=== PATIENT | male | born 1935 | race Caucasian/White ===

== ENCOUNTER 2018-01-31 11:46 | Emergency (ER) | payer MEDICARE ==
[2018-01-31] MEDS ORDERED: Dexamethasone 10 MG/ML VIAL ONE (12:39)
--- NOTE | 2018-01-31 13:52 | RAD ---
LUMBAR SPINE 2 VIEWS: Date: 01/30/18 HISTORY: Pain. COMPARISON: None. FINDINGS: No acute fracture or malalignment of the lumbar spine. Large flowing lateral osteophytes. Moderate va scular calcifications. Chronic appearing superior end plate deformity at L2. There is advanced degenerative change between t he L4 and L5 spinous processes. IMPRESSION: Degenerative changes. No acute abnormality. POS: JESENIA
== END 2018-01-31 13:23 | disposition home or self-care (01) ==
LOC: SCSER 11:46
DX: M54.41 Lumbago with sciatica, right side (principal); N40.0 Benign prostatic hyperplasia without lower urinary tract symptoms; E78.5 Hyperlipidemia, unspecified; I10 Essential (primary) hypertension; Z79.899 Other long term (current) drug therapy; Z79.82 Long term (current) use of aspirin
CPT/HCPCS: 72100; 96372; J1100

== ENCOUNTER 2018-04-05 16:41 | Emergency (ER) | payer MEDICARE ==
[2018-04-05] MEDS ORDERED: Ibuprofen 200 MG TAB ONE (17:13)
[2018-04-05] MEDS ORDERED: Acetaminophen 500 MG TAB ONE (17:16)
[2018-04-05 18:37] LABS: #Eosinphils 0.1 thou/uL (0.0-0.7); #Lymphocytes 0.4 thou/uL (1.20-3.40); #Monocytes 0.7 thou/uL (0.11-0.59); %Basophils 0.1 % (0.0-1.0); %Eosinophils 1.2 % (0.0-10.0); %Lymphocytes 6.7 % (21.0-51.0); %Monocytes 11.9 % (0.0-10.0); %Neutrophils 80.1 % (42.0-75.0); Hemoglobin 12.3 g/dL (14.0-18.0); Mean Corpuscular HGB CONC 34.1 g/dL (32.0-36.0); Mean Corpuscular Volume 93.9 fl (80.0-94.0); Mean Platelet Volume 7.6 fL (7.4-10.4); Platelet Count 160 thou/uL (130-400); RBC Distribution Width 12.5 % (11.5-14.5); Red Blood Cell (RBC) Count 3.84 mill/uL (4.70-6.10); White Blood Cell (WBC) Count 6.2 thou/uL (4.8-10.8)
[2018-04-05] MEDS ORDERED: cefTRIAXone\\ROCEPHIN 2 GM VIAL ONE (18:38)
[2018-04-05] MEDS ORDERED: Sodium Chloride 0.9% 100 ML ONE (18:38)
--- NOTE | 2018-04-05 18:42 | RAD ---
PA AND LATERAL OF THE CHEST: 04/05/18 INDICATION: Chest pain with fever. FINDINGS: There are patchy opacities suspected within the left lower lobe which are new from comparison dated , suspicious for pneumonia. The right lung is clear. Moderate cardiomegaly is stable. 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 Chronic osseous changes are stable. IMPRESSION: Patchy air space opacity within the left lower lobe suspicious for pneumonia. Radiographic followup t o resolution is recommended. POS: KANE
[2018-04-05 18:56] LABS: ALT (SGPT) 20 U/L (8-55); AST (SGOT) 23 U/L (5-34); Albumin 4.1 g/dL (3.4-4.8); Alkaline Phosphatase 76 U/L (40-150); Anion Gap 12 mmol/L (10-20); BUN (Urea Nitrogen) 39 mg/dL (8.4-25.7); Bilirubin, Total 0.7 mg/dL (0.2-1.2); Calc. Creatinine Clearance 0 mL/min (70-130); Calcium 9.4 mg/dL (7.8-10.44); Carbon Dioxide 24 mmol/L (23-31); Chloride 106 mmol/L (98-107); Estimated GFR-MDRD 32; Globulin 2.6 g/dL (2.4-3.5); Glucose 104 mg/dL (83-110); Potassium 5.2 mmol/L (3.5-5.1); Protein, Total 6.7 g/dL (5.8-8.1); Sodium 137 mmol/L (136-145)
[2018-04-05] MEDS ORDERED: Azithromycin 250 MG TAB ONE (20:18)
== END 2018-04-05 20:30 | disposition home or self-care (01) ==
LOC: ERS 16:41
DX: J18.9 Pneumonia, unspecified organism (principal); E78.5 Hyperlipidemia, unspecified; I10 Essential (primary) hypertension
CPT/HCPCS: 36415; 71046; 80053; 85025; 86140; 87040; 87804; 94640; 96365; J0696; J7050; J7620